=== PATIENT | female | born 1990 | race Caucasian/White ===

== ENCOUNTER 2025-06-02 21:26 | Emergency (ER) | payer MEDICAID, SELFPAY ==
[~2025-06-02] VITALS: Ht 165.1 cm; Wt 101.5 kg
[2025-06-02 22:18] LABS: KETONE, URINE AUTO RFX NEGATIVE (NEGATIVE); MUCUS, URINE RFX LARGE (NEGATIVE); RBC, URINE AUTO RFX 2 /HPF (0-3); SQUAM EPITHELIAL CELL UR AURFX 31 /HPF (0-6)
[2025-06-02 22:24] LABS: LEUKOCYTE ESTERASE UR AUTO RFX 2+ (NEGATIVE); NITRITE, URINE AUTO RFX POSITIVE (NEGATIVE); WBC, URINE AUTO RFX 15 /HPF (0-3)
[2025-06-03] MEDS: KETOROLAC 30 MG/ML 1 ML VIAL IV ONE (07:19)
[2025-06-03] MEDS: NS (Normal Saline) 0.9% 1,000 ML IV ONE (07:19)
[2025-06-03] MEDS: cefTRIAXone SOD 1 GM in DEXTROSE 5% (D5W) ADV/MINI-BAG 50 ML IV ONE (07:20)
[2025-06-03 07:37] LABS: BASO # 0.0 10^3/uL (0.0-0.2); BASO % 0.5 % (0.0-1.0); EOS # 0.3 10^3/uL (0.0-0.5); EOS % 3.6 % (0.0-3.0); LYMPH # 2.9 10^3/uL (1.5-5.0); LYMPH % 35.6 % (24.0-44.0); MONO # 0.6 10^3/uL (0.0-0.8); MONO % 7.1 % (2.0-8.0); NEUTROPHILS # 4.4 10^3/uL (1.5-8.5); NEUTROPHILS % 53.1 % (36.0-66.0); PLATELET COUNT, AUTOMATED 278 10^3/uL (150-450)
[2025-06-03 07:58] LABS: CALCIUM LEVEL 8.7 MG/DL (8.5-10.1); CARBON DIOXIDE LEVEL 27 MMOL/L (20-31); CHLORIDE LEVEL 106 MMOL/L (98-107); CREATININE FOR GFR 0.72 MG/DL (0.55-1.30); GLOMERULAR FILTRATION RATE > 90.0 (>60); POTASSIUM SERUM 3.9 MMOL/L (3.5-5.1); SODIUM LEVEL 133 MMOL/L (136-145)
[2025-06-03] MEDS ORDERED: METH-1165 PO (09:09)
[2025-06-03] MEDS ORDERED: NAPR-837 PO (09:09)
[2025-06-03] MEDS ORDERED: CEFD1CAP9 PO (09:09)
[2025-06-03 09:45] VITALS: BP 108/64; TEMP 98.1; O2SAT 98
[2025-06-03 11:17] LABS: Trichomonas vaginalis (AMP) NOT DETECTED (NEGATIVE)
[2025-06-03 11:40] LABS: GC DNA AMPLIFICATION NEGATIVE (NEGATIVE)
== END 2025-06-03 10:05 | disposition home or self-care (01) ==
LOC: M ED 21:26
DX: N39.0 Urinary tract infection, site not specified (principal); M54.50 Low back pain, unspecified; N20.0 Calculus of kidney; Z79.1 Long term (current) use of non-steroidal anti-inflammatories (NSAID); Z79.2 Long term (current) use of antibiotics; Z79.899 Other long term (current) drug therapy; Z88.5 Allergy status to narcotic agent
CPT/HCPCS: 74176; 80048; 81001; 83605; 85025; 87088; 87186; 87661; 87810; 87850; 96360; 96375; 99285; J0696; J1885